=== PATIENT | female | born 1940 | race Caucasian/White ===

== ENCOUNTER 2019-11-21 01:01 | Observation (INO) | payer MEDICARE, OTHER, SELFPAY ==
[2019-11-21] VITALS (16 sets, daily range): BP systolic 100–145; BP diastolic 63–106; PULSE 70–153; RESP 12–28; TEMP 36.3–36.9; O2SAT 93–100; BMI 16.5
--- NOTE | 2019-11-21 01:05 | XRR_ITS ---
PROCEDURE INFORMATION: Exam: XR Chest, 1 View Exam date and time: 11/21/2019 1:44 AM Age: 79 years old Clinical indication: Other: Syncope TECHNIQUE: Imaging protocol: XR of the chest Views: 1 view. COMPARISON: No relevant prior studies available. FINDINGS: Lungs: A calcified granuloma seen in the right perihilar region. Pleural space: Unremarkable. No pleural effusion. No pneumothorax. Heart/Mediastinum: Unremarkable. No cardiomegaly. Bones/joints: Unremarkable. XR/XR chest 1V portable [id number] IMPRESSION: There are no acute chest findings.
--- NOTE | 2019-11-21 01:06 | ECG_ITS ---
Measurements Intervals [place] Rate: 145 P: MI: 0 QRS: -26 QRSD: 126 T: 128 QT: 320 QTc: 498 ATRIAL FIBRILLATION WITH RAPID VENTRICULAR RESPONSE LEFT BUNDLE BRANCH BLOCK No previous ECG available for comparison Electronically Signed On 11-21-2019 16:18:57 CDT by Elvia Snyder M.D. [id number]
[2019-11-21 01:18] LABS: Basophils % 0.2 %; Eosinophils # 0.1 10^3/uL (0.0-0.8); Eosinophils % 0.5 %; Hematocrit 38.2 % (37.0-47.0); Hemoglobin 12.5 g/dL (11.5-15.3); Lymphocytes # 2.2 10^3/uL (0.8-4.8); Mean Corpuscular HGB Conc 32.7 g/dL (30.0-36.0); Mean Corpuscular Hemoglobin 29.6 pg (28.0-34.0); Mean Corpuscular Volume 90.5 fL (81-99); Mean Platelet Volume 10.7 fL (7.4-10.4); Monocytes # 0.6 10^3/uL (0.2-0.9); Monocytes % 4.5 %; Neutrophils % 77.5 %; Nucleated Red Blood Cells % 0 %; Platelet Count 256 10^3/cmm (130-400); Red Blood Count 4.22 10^6/uL (4.1-5.3); Red Cell Distribution Width 12.2 % (12.1-15.1); White Blood Count 12.9 10^3/uL (4.0-10.0)
[2019-11-21 01:28] LABS: Partial Thromboplastin Time 24.8 SECONDS (23.9-36.7)
[2019-11-21 01:35] LABS: Troponin(5th) Baseline 6 ng/mL (0-10)
[2019-11-21 01:44] LABS: Urine Appearance Clear (CLEAR); Urine Color Yellow (Yellow); pH Urine 7 (5-7)
[2019-11-21 01:45] LABS: Bacteria Urine 1+; Bilirubin Urine Neg (NEGATIVE); Blood Urine Neg (Negative); Glucose Urine UA Trace (Normal); Ketones Urine 2+ (Negative); Leukocyte Esterase Urine 1+ (Negative); Nitrate Urine Negative (Negative); Protein Urine Neg (Negative); RBC Urine 0-4 /hpf (0-2); Squamous Epithelial Cell Urine 0-4 (0-5); Urobilinogen Urine Norm (Negative); WBC Urine 0-4 /hpf (0-5)
--- NOTE | 2019-11-21 02:06 | W.ED.GENADLT ---
HPI - General Adult General: Chief complaint: General Medical Stated complaint: chest pain/possible stemi Time Seen by Provider: 11/21/19 01:05 History of Present Illness: HPI narrative: Mrs. Miller is a nice 79-year-old female who comes in complaining of feeling fatigued throughout the day today. She states when she went to lay down she had the abrupt onset of nausea and she threw up. She felt weak all over. She stated that she nearly passed out. She denies any chest pain, shortness of breath, headache, abdominal pain, back pain, blood in her bowels or otherwise. Patient states she is not had anything like this before. EMS was called and in route they called a STEMI alert. Dr. Rojas reviewed the EKG here and felt it to be a left bundle branch block as did I. Currently the patient states she feels tired and fatigued but otherwise she has no complaints. She denies any chronic medical problems and she states she is never had any surgeries. Associated symptoms: Reports nausea and vomiting; Deny chest pain, confusion, diaphoresis, dyspnea, headache(s), malaise, rash, palpitations or syncope Review of Systems Const: Denies: fever(s), chills, body aches, fatigue, malaise, night sweats or diaphoresis Eyes: Denies: change in vision, blurry vision or blind spots ENMT: Denies: throat pain, odynophagia, hoarseness, ear or mastoid pain, ear discharge, change in hearing or nasal discharge Card: Reports: pre-syncope; Denies: chest pain, palpitations, irregular heart rhythm, lightheadedness, syncope, dyspnea on exertion or orthopnea Resp: Denies: dyspnea, productive cough, non-productive cough, wheezing, hemoptysis or chest congestion GI: Reports: nausea and vomiting; Denies: abdominal pain, hematemesis, coffee ground emesis, heartburn, diarrhea, constipation, GI cramping, hematochezia or melena : Denies: flank pain, dysuria, urinary frequency, urinary urgency, oliguria, urinary incontinence or hematuria Musc: Denies: neck pain, back pain, extremity pain, extremity swelling, joint pain, joint swelling, joint redness, joint warmth or joint stiffness Skin/Breast: Denies: rash, pruritus, erythema, skin tenderness or jaundice Neuro: Denies: headache(s), numbness in extremities, weakness in extremities, sensory changes, lack of coordination, difficulty walking, dizziness, vertigo, confusion or Slurred speech present Endo: Denies: polyuria, polydipsia, tired all the time, cold intolerance, excessive sweating, flushing, hot flashes or heat intolerance Steven/Lymph: Denies: easy bruising, easy bleeding, petechiae, purpura or enlarged lymph nodes All/Imm: Denies: urticaria, throat swelling, tongue swelling, facial swelling or acute wheezing PFSH ED PFSH: Medical History No pertinent past medical history Surgical History No history of previous surgery Family History Father Family history of premature coronary artery disease Other CAD (coronary artery disease) Social History Smoking and tobacco status: never smoked Physical Exam Const: COMMON NORMALS: no acute distress, patient oriented x3, no limitations, healthy appearing and well nourished EXAM LIMITATIONS: no altered mental status GENERAL APPEARANCE: cooperative, well kempt and well developed HENMT: COMMON NORMALS: normocephalic, atraumatic, hearing grossly normal bilaterally, external ears normal, EAC's normal, Normal external nose present and moist oral mucous membranes HEAD & SCALP: normal to inspection, normocephalic and atraumatic FACE & SINUS: normal facial exam and face symmetric NOSE: Normal external nose present and Normal nares present EXTERNAL EAR: Yes external ears normal EXTERNAL AUDITORY CANAL: EAC's normal MOUTH: Normal oral and palatal mucosa present, lip normal and tongue normal Eye: COMMON NORMALS: Equal, round and reactive pupils present, EOMs intact bilaterally, conjunctivae normal and no scleral icterus GENERAL EYE: appearance normal, both eyes and all related structures and normal light reflex ALIGNMENT: Yes alignment normal PERIORBITAL: periorbital findings normal EYELID: eyelids normal CONJUNCTIVA: Yes conjunctivae normal SCLERA: sclerae normal PUPIL: Yes Equal, round and reactive pupils present DIRECT OPHTHALMOSCOPY: Yes normal light reflex Neck/C-Spine: COMMON NORMALS: full ROM, no lymphadenopathy, supple, no meningeal signs and no JVD GENERAL: Yes normal visual inspection and Yes trachea midline CERVICAL SPINE: Yes cervical ROM normal Chest: COMMONS NORMALS: normal inspection of the chest and normal palpation of entire chest wall Resp: COMMON NORMALS: normal respiratory effort, No retractions, No use of accessory muscles and clear to auscultation bilaterally EFFORT & INSPECTION: Yes able to speak in complete sentences AUSCULTATION: clear to auscultation bilaterally, no crackles, no rales, no rhonchi and no wheezes Cardio: COMMON NORMALS: no JVD, regular rate, regular rhythm, S1 normal heart sound present, S2 normal heart sound present, No gallops present (Cardio), No clicks present (Cardio), No murmurs present (Cardio) and No rub (Cardio) RATE: regular rate RHYTHM: regular rhythm HEART SOUNDS: S1 normal heart sound present, S2 normal heart sound present, no click, no gallops, no murmurs and no rubs GI: COMMON NORMALS: Soft to palpation, non-tender, No hepatosplenomegaly present and no masses PALPATION: Yes Soft to palpation, No Tenderness to palpation present (GI), No Guarding due to palpation present (GI), No Rigid due to palpation, Yes No hepatosplenomegaly present, No Hernia present, No Palpable mass present and No Pulsatile mass present : COMMON NORMALS: Yes no CVA tenderness BLADDER/KIDNEY EXAM: Yes no CVA tenderness EXTERNAL FEMALE EXAM: No Hernia present Back/Pelvis: COMMON NORMALS: no CVA tenderness, thoracic and lumbar spine normal to inspection, no thoracic nor lumbar tenderness and thoraco-lumbar ROM normal Extremity: COMMON NORMALS: normal to inspection, full ROM, capillary refill normal, no joint enlargement, no clubbing, cyanosis or edema and no calf tenderness Neuro: COMMON NORMALS: patient oriented x3, CN's II-XII intact bilaterally, moves all extremities, no focal motor deficits and no sensory deficits noted MENINGEAL SIGNS: Yes no meningeal signs SPEECH: speech normal Psych: COMMON NORMALS: mental status grossly normal, Normal thought process present, cooperative, normal affect, speech normal and activity/motor behavior normal APPEARANCE: Yes well kempt SPEECH: Yes normal speech THOUGHT PROCESS: Normal thought process present Skin: COMMON NORMALS: no rashes or lesions noted, turgor normal, no jaundice, no petechiae and no mottling GENERAL SKIN EXAM: no rashes or lesions noted and turgor normal Course Vital Signs: Vital signs: Vital Signs Temperature 97.4 F L 11/21/19 01:02 Pulse Rate 146 H 11/21/19 02:00 Respiratory Rate 13 11/21/19 02:00 Blood Pressure 126/85 11/21/19 02:00 Pulse Oximetry 96 11/21/19 02:00 MDM - General Adult MDM Narrative: Medical decision making narrative: The case was reviewed with Dr. Jones, he agrees to go ahead and admit. The patient is a new onset atrial fibrillation with a near syncopal episode. Lab Data: Labs: Lab Results 11/21/19 11/21/19 11/21/19 Range/Units 01:10 01:10 01:10 WBC 12.9 H (4.0-10.0) 10^3/ uL RBC 4.22 (4.1-5.3) 10^6/u L Hgb 12.5 (11.5-15.3) g/dL Hct 38.2 (37.0-47.0) % MCV 90.5 (81-99) fL MCH 29.6 (28.0-34.0) pg MCHC 32.7 (30.0-36.0) g/dL RDW 12.2 (12.1-15.1) % Plt Count 256 (130-400) 10^3/c mm MPV 10.7 H (7.4-10.4) fL Neut % (Auto) 77.5 % Lymph % (Auto) 17.0 % [place] % (Auto) 4.5 % Eos % (Auto) 0.5 % Baso % (Auto) 0.2 % Neut # (Auto) 10.0 H (1.8-7.7) 10^3/u L Lymph # (Auto) 2.2 (0.8-4.8) 10^3/u L [place] # (Auto) 0.6 (0.2-0.9) 10^3/u L Eos # (Auto) 0.1 (0.0-0.8) 10^3/u L Baso # (Auto) 0.0 (0.0-0.1) 10^3/u L Nucleated RBC % (a uto) 0 % Nucleated RBCs # 0.0 /100WBC PT 13.50 H (10.5-13.3) SECO NDS INR 1.00 (0.8-1.2) APTT 24.8 (23.9-36.7) SECO NDS Sodium 137 (136-145) mmol/L Potassium 3.2 L (3.5-5.1) mmol/L Chloride 100 (98-107) mmol/L Carbon Dioxide 23 (22-29) mmol/L Anion Gap 17.2 (5-19) BUN 10 (8-23) mg/dL Creatinine 0.5 (0.5-0.9) mg/dL Glucose 149 H (65-115) mg/dL Calculated Osmolal ity 283 L (285-295) mOsm/k g Calcium 8.8 (8.5-10.5) mg/dL Magnesium 1.9 (1.7-2.3) mg/dL Total Bilirubin 0.4 (0.15-1.2) mg/dL AST 19 (0-32) U/L ALT 17 (0-33) U/L Alkaline Phosphata se 73 (35-105) IU/L Creatine Kinase 52 (26-192) U/L Troponin T Baselin e (0-10) ng/mL NT-Pro-B Natriuret Pep 51 (0-450) pg/mL Total Protein 7.2 (6.6-8.7) g/dL Albumin 4.3 (3.5-5.2) g/dL Globulin 2.9 (1.3-4.6) g/dL TSH 5.38 H (0.27-4.20) uIU/ mL Urine Color (Yellow) Urine Appearance (CLEAR) Urine pH (5-7) Ur Specific Gravit y (1.005-1.030) Urine Protein (Negative) Urine Glucose (UA) (Normal) Urine Ketones (Negative) Urine Blood (Negative) Urine Nitrate (Negative) Urine Bilirubin (NEGATIVE) Urine Urobilinogen (Negative) mg/dL Ur Leukocyte Ayanna ase (Negative) Urine RBC (0-2) /hpf Urine WBC (0-5) /hpf Ur Squamous Epith Cells (0-5) Urine Bacteria (NONE) Ethyl Alcohol < 10 (0-10) mg/dL 11/21/19 11/21/19 Range/Units 01:10 01:22 WBC (4.0-10.0) 10^3/ uL RBC (4.1-5.3) 10^6/u L Hgb (11.5-15.3) g/dL Hct (37.0-47.0) % MCV (81-99) fL MCH (28.0-34.0) pg MCHC (30.0-36.0) g/dL RDW (12.1-15.1) % Plt Count (130-400) 10^3/c mm MPV (7.4-10.4) fL Neut % (Auto) % Lymph % (Auto) % [place] % (Auto) % Eos % (Auto) % Baso % (Auto) % Neut # (Auto) (1.8-7.7) 10^3/u L Lymph # (Auto) (0.8-4.8) 10^3/u L [place] # (Auto) (0.2-0.9) 10^3/u L Eos # (Auto) (0.0-0.8) 10^3/u L Baso # (Auto) (0.0-0.1) 10^3/u L Nucleated RBC % (a uto) % Nucleated RBCs # /100WBC PT (10.5-13.3) SECO NDS INR (0.8-1.2) APTT (23.9-36.7) SECO NDS Sodium (136-145) mmol/L Potassium (3.5-5.1) mmol/L Chloride (98-107) mmol/L Carbon Dioxide (22-29) mmol/L Anion Gap (5-19) BUN (8-23) mg/dL Creatinine (0.5-0.9) mg/dL Glucose (65-115) mg/dL Calculated Osmolal ity (285-295) mOsm/k g Calcium (8.5-10.5) mg/dL Magnesium (1.7-2.3) mg/dL Total Bilirubin (0.15-1.2) mg/dL AST (0-32) U/L ALT (0-33) U/L Alkaline Phosphata se (35-105) IU/L Creatine Kinase (26-192) U/L Troponin T Baselin e 6 (0-10) ng/mL NT-Pro-B Natriuret Pep (0-450) pg/mL Total Protein (6.6-8.7) g/dL Albumin (3.5-5.2) g/dL Globulin (1.3-4.6) g/dL TSH (0.27-4.20) uIU/ mL Urine Color Yellow (Yellow) Urine Appearance Clear (CLEAR) Urine pH 7 (5-7) Ur Specific Gravit y 1.010 (1.005-1.030) Urine Protein Neg (Negative) Urine Glucose (UA) Trace H (Normal) Urine Ketones 2+ H (Negative) Urine Blood Neg (Negative) Urine Nitrate Negative (Negative) Urine Bilirubin Neg (NEGATIVE) Urine Urobilinogen Norm (Negative) mg/dL Ur Leukocyte Ayanna ase 1+ H (Negative) Urine RBC 0-4 H (0-2) /hpf Urine WBC 0-4 H (0-5) /hpf Ur Squamous Epith Cells 0-4 H (0-5) Urine Bacteria 1+ H (NONE) Ethyl Alcohol (0-10) mg/dL Imaging Data^: CXR: My impression: No acute cardiopulmonary findings. EKG Data^: EKG 1: Attestation: I personally reviewed and interpreted this EKG as follows: EKG interpretation date: 11/21/19 EKG interpretation time: 01:09 Interpretation: Atrial fibrillation with rapid ventricular response at 145, left bundle branch block. Left bundle branch block old. Discharge Plan Discharge Patient Disposition: Placed in Observation Clinical Impression: Atrial fibrillation with RVR, Near syncope Condition: Stable Prescriptions: No Action Aricept 10 mg 10 mg PO BEDTIME RF: 0 atorvastatin RF: 0 Referrals: Dave Cooper [Primary Care Provider] - Coding Level of Care Code ED Social Services Analyst for Chg Fwd Exam Comprehensive
[2019-11-21 02:13] LABS: Alanine Aminotransferase 17 U/L (0-33); Albumin Level 4.3 g/dL (3.5-5.2); Alcohol Level < 10 mg/dL (0-10); Alkaline Phosphatase 73 IU/L (35-105); Anion Gap 17.2 (5-19); Aspartate Amino Transferase 19 U/L (0-32); Blood Urea Nitrogen 10 mg/dL (8-23); Calcium 8.8 mg/dL (8.5-10.5); Carbon Dioxide 23 mmol/L (22-29); Chloride 100 mmol/L (98-107); Creatine Phosphokinase 52 U/L (26-192); Globulin 2.9 g/dL (1.3-4.6); Glucose 149 mg/dL (65-115); Magnesium 1.9 mg/dL (1.7-2.3); NT Pro B Type Natriuretic Pept 51 pg/mL (0-450); Osmolality Calculated 283 mOsm/kg (285-295); Potassium 3.2 mmol/L (3.5-5.1); Sodium 137 mmol/L (136-145); Thyroid Stimulating Hormone 5.38 uIU/mL (0.27-4.20); Total Bilirubin 0.4 mg/dL (0.15-1.2); Total Protein 7.2 g/dL (6.6-8.7)
[2019-11-21] MEDS: potassium chloride oral liq 20 mEq/15 mL UDC 40 MEQ PO (02:58)
--- NOTE | 2019-11-21 03:06 | ECG_ITS ---
Measurements Intervals [place] Rate: 84 P: 69 MA: 155 QRS: -7 QRSD: 125 T: 64 QT: 440 QTc: 521 SINUS RHYTHM POSSIBLE LEFT ATRIAL ENLARGEMENT [-0.1mV P WAVE IN V1/V2] LEFT BUNDLE BRANCH BLOCK [120+ ms QRS DURATION, 80+ ms Q/S IN V1/V2, 85+ ms R IN I/aVL/V5/V6] No previous ECG available for comparison Electronically Signed On 11-21-2019 16:27:08 CDT by Elvia Snyder M.D. [id number]
--- NOTE | 2019-11-21 03:15 | USCV_ITS ---
Odalys Miller Age: 79 Gender: F : 1940 Exam Date: 11/21/2019 08:38 Ordering Phys: Lamine Palma MD Technologist: Melissa Bowers Exam Location: [facility] [place] Indication: Afib/RVR BP: 112 / 63 HR: 77 Rhythm: Sinus Technical Quality: Suboptimal MEASUREMENTS (Male / Female) Normal Values 2D ECHO LV Diastolic Diameter PLAX 3.1 cm 4.2 - 5.9 / 3.9 - 5.3 cm LV Systolic Diameter PLAX 1.6 cm LV Chamber Size 2.3 cm IVS Diastolic Thickness 1.3 cm 0.6 - 1.0 / 0.6 - 0.9 cm IVS Systolic Thickness 1.8 cm LVPW Diastolic Thickness 1.0 cm 0.6 - 1.0 / 0.6 - 0.9 cm LVPW Systolic Thickness 1.0 cm RV Chamber Size 2.0 cm LVOT Diameter 1.8 cm LV Ejection Fraction 2D Teich 80.6 % LV Ejection Fraction MOD 2C 65.4 % LV Ejection Fraction 2C AL 69.1 % LA Diameter 1.7 cm LA Width 2.5 cm LA Height 4.1 cm RA Width 2.7 cm RA Height 3.6 cm Aorta at Sinotubular Diameter 2.2 cm M-MODE LV Diastolic Diameter MM 4.8 cm 4.2 - 5.9 / 3.9 - 5.3 cm LV Systolic Diameter MM 3.0 cm LV Ejection Fraction MM Teich 65.6 % IVS Diastolic Thickness MM 1.0 cm 0.6 - 1.0 / 0.6 - 0.9 cm IVS Systolic Thickness MM 1.6 cm LVPW Diastolic Thickness MM 1.0 cm 0.6 - 1.0 / 0.6 - 0.9 cm LVPW Systolic Thickness MM 1.5 cm Aortic Annulus Diameter 2.9 cm LA Ao Ratio MM 0.6 MV E Point Septal Separation 0.6 cm DOPPLER AV Peak Velocity 136.0 cm/s LVOT Peak Velocity 116.0 cm/s AV Area Cont Eq vti 2.2 cm squared AV Area Cont Eq pk 2.2 cm squared MV Area PHT 3.7 cm squared Mitral E to A Ratio 0.8 MV E' Velocity 8.0 cm/s Mitral E to MV E' Ratio 11.1 Mitral E to LV E' Lateral Ratio 9.4 Mitral E to LV E' Septal Ratio 13.6 TR Peak Velocity 254.0 cm/s TR Peak Gradient 25.9 mmHg TR Mean Velocity 212.1 cm/s TR Mean Gradient 18.8 mmHg TR Velocity Time Integral 71.6 cm TV Peak E Velocity 40.0 cm/s Right Atrial Pressure 3.0 mmHg Pulmonary Artery Systolic Pressu 28.8 mmHg PV Peak Velocity 82.0 cm/s RV Acceleration Time 0.1 s RV Ejection Time 0.3 s RV AcT/ET 0.3 FINDINGS Left Ventricle Normal left ventricular size, systolic function and wall thickness, with no regional wall motion abnormalities. Left ventricular ejection fraction is estimated at 70 %. Grade 1 diastolic dysfunction with normal to mildly elevated filling pressure. Right Ventricle Normal right ventricular size and systolic function. Right ventricular systolic pressure 28.8 mmHg. Right Atrium Normal right atrial size. Right atrial pressure estimated at 3 mmHg. Left Atrium Upper normal left atrial size. Mitral Valve Structurally normal mitral valve. No mitral valve stenosis. No mitral valve regurgitation. Aortic Valve Mildly thickened and sclerotic trileaflet aortic valve. Aortic valve sclerosis without stenosis. No aortic valve regurgitation. Tricuspid Valve Structurally normal tricuspid valve. Mild tricuspid valve regurgitation. Pulmonic Valve Pulmonic valve not well visualized. No pulmonary valve stenosis. No pulmonary valve regurgitation. Pericardium No pericardial effusion. Aorta Normal size aortic root and proximal ascending aorta. CONCLUSIONS 1. Normal left ventricular size, systolic function and wall thickness, with no regional wall motion abnormalities. Left ventricular ejection fraction is estimated at 70 %. Grade 1 diastolic dysfunction with normal to mildly elevated filling pressure. 2. Normal right ventricular size and systolic function. 3. Mild tricuspid valve regurgitation. 4. No prior similar studies to compare. Elvia Snyder MD (Electronically Signed) Final Date: 21 Nov 2019 16:17 S
--- NOTE | 2019-11-21 03:22 | PM.HP ---
Providers/Chief Complaint Primary Care Provider: Dave Cooper Chief Complaint: AFIB W/ RVR History of Present Illness Odalys Miller is a 79 year old female with past medical history of dyslipidemia and probably mild dementia who was brought to emergency room due to complaints of chest pain. EKG showed A. fib with RVR with heart rate of close to 150. EKG also showed left bundle branch block for which heart alert was called. 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 Patient also reports associated tiredness and diaphoresis. The symptoms started yesterday afternoon. The patient received full dose of aspirin by EMS. In the emergency room the patient received bolus of diltiazem and was started on diltiazem drip. Currently the heart rate is at 120s. She reports that her chest discomfort has resolved. She denies any shortness of breath or cough. No fevers or chills. No nausea or vomiting. No diarrhea. She denies any dysuria or abdominal pain. The patient denies similar chest discomfort in the past. No tobacco alcohol and substance abuse. Family history is positive for heart attack in her father at very young age. Review of Systems General: Reports: 10 or more systems reviewed and unremarkable except in HPI and below Medications/Allergies Home Medications Medication Instructions Recorded Confirmed Last Taken Type Aricept 10 mg PO BEDTIME 11/21/19 11/21/19 11/20/19 History atorvastatin 11/21/19 11/20/19 History Allergies Allergy/AdvReac Type Severity Reaction Status Date / Time meperidine [From Demerol] Allergy ALGY-Hives Verified 11/21/19 01:12 PFSH Acute PFSH: Medical History No pertinent past medical history Surgical History No history of previous surgery Family History Father Family history of premature coronary artery disease Other CAD (coronary artery disease) Social History Smoking and tobacco status: never smoked Vitals/I&O/Wt Last Vital Signs Temp 97.4 F L 11/21/19 01:02 Pulse 150 H 11/21/19 03:17 Resp 18 11/21/19 03:17 BP 102/68 11/21/19 03:17 Pulse Ox 100 11/21/19 03:17 11/20/19 11/20/19 11/21/19 14:59 22:59 06:59 Intake Total 6.834 / 6.834 Balance 6.834 / 6.834 Weight last 48 hrs Weight 40.823 kg Physical Exam Narrative: EXAM NARRATIVE: Currently the patient is awake alert and oriented. No acute distress. Mood and affect are appropriate. Responses are adequate. Skin is warm and dry. Moist mucous membranes. Eyes Boo, extraocular muscles intact. No facial asymmetry. Normal speech. No focal muscle weaknesses or sensory loss. Heart: S1, S2, irregularly irregular Lungs are clear to auscultation bilaterally. No respiratory distress Abdomen is soft, nontender, bowel sounds are present Extremities no edema cyanosis or calf tenderness bilaterally Data : 11/21/19 01:10 11/21/19 01:10 Other Labs: Laboratory Results WBC 12.9 10^3/uL (4.0-10.0) H 11/21/19 01:10 RBC 4.22 10^6/uL (4.1-5.3) 11/21/19 01:10 Hgb 12.5 g/dL (11.5-15.3) 11/21/19 01:10 Hct 38.2 % (37.0-47.0) 11/21/19 01:10 MCV 90.5 fL (81-99) 11/21/19 01:10 MCH 29.6 pg (28.0-34.0) 11/21/19 01:10 MCHC 32.7 g/dL (30.0-36.0) 11/21/19 01:10 RDW 12.2 % (12.1-15.1) 11/21/19 01:10 Plt Count 256 10^3/cmm (130-400) 11/21/19 01:10 MPV 10.7 fL (7.4-10.4) H 11/21/19 01:10 Neut % (Auto) 77.5 % 11/21/19 01:10 Lymph % (Auto) 17.0 % 11/21/19 01:10 [place] % (Auto) 4.5 % 11/21/19 01:10 Eos % (Auto) 0.5 % 11/21/19 01:10 Baso % (Auto) 0.2 % 11/21/19 01:10 Neut # (Auto) 10.0 10^3/uL (1.8-7.7) H 11/21/19 01:10 Lymph # (Auto) 2.2 10^3/uL (0.8-4.8) 11/21/19 01:10 [place] # (Auto) 0.6 10^3/uL (0.2-0.9) 11/21/19 01:10 Eos # (Auto) 0.1 10^3/uL (0.0-0.8) 11/21/19 01:10 Baso # (Auto) 0.0 10^3/uL (0.0-0.1) 11/21/19 01:10 Nucleated RBC % (auto) 0 % 11/21/19 01:10 Nucleated RBCs # 0.0 /100WBC 11/21/19 01:10 PT 13.50 SECONDS (10.5-13.3) H 11/21/19 01:10 INR 1.00 (0.8-1.2) 11/21/19 01:10 APTT 24.8 SECONDS (23.9-36.7) 11/21/19 01:10 Sodium 137 mmol/L (136-145) 11/21/19 01:10 Potassium 3.2 mmol/L (3.5-5.1) L 11/21/19 01:10 Chloride 100 mmol/L (98-107) 11/21/19 01:10 Carbon Dioxide 23 mmol/L (22-29) 11/21/19 01:10 Anion Gap 17.2 (5-19) 11/21/19 01:10 BUN 10 mg/dL (8-23) 11/21/19 01:10 Creatinine 0.5 mg/dL (0.5-0.9) 11/21/19 01:10 Glucose 149 mg/dL (65-115) H 11/21/19 01:10 Calculated Osmolality 283 mOsm/kg (285-295) L 11/21/19 01:10 Calcium 8.8 mg/dL (8.5-10.5) 11/21/19 01:10 Magnesium 1.9 mg/dL (1.7-2.3) 11/21/19 01:10 Total Bilirubin 0.4 mg/dL (0.15-1.2) 11/21/19 01:10 AST 19 U/L (0-32) 11/21/19 01:10 ALT 17 U/L (0-33) 11/21/19 01:10 Alkaline Phosphatase 73 IU/L (35-105) 11/21/19 01:10 Creatine Kinase 52 U/L (26-192) 11/21/19 01:10 Troponin T Baseline 6 ng/mL (0-10) 11/21/19 01:10 NT-Pro-B Natriuret Pep 51 pg/mL (0-450) 11/21/19 01:10 Total Protein 7.2 g/dL (6.6-8.7) 11/21/19 01:10 Albumin 4.3 g/dL (3.5-5.2) 11/21/19 01:10 Globulin 2.9 g/dL (1.3-4.6) 11/21/19 01:10 TSH 5.38 uIU/mL (0.27-4.20) H 11/21/19 01:10 Urine Color Yellow (Yellow) 11/21/19 01:22 Urine Appearance Clear (CLEAR) 11/21/19 01:22 Urine pH 7 (5-7) 11/21/19 01:22 Ur Specific [place] 1.010 (1.005-1.030) 11/21/19 01:22 Urine Protein Neg (Negative) 11/21/19 01:22 Urine Glucose (UA) Trace (Normal) H 11/21/19 01:22 Urine Ketones 2+ (Negative) H 11/21/19 01:22 Urine Blood Neg (Negative) 11/21/19 01:22 Urine Nitrate Negative (Negative) 11/21/19 01:22 Urine Bilirubin Neg (NEGATIVE) 11/21/19 01:22 Urine Urobilinogen Norm mg/dL (Negative) 11/21/19 01:22 Ur Leukocyte Esterase 1+ (Negative) H 11/21/19 01:22 Urine RBC 0-4 /hpf (0-2) H 11/21/19 01:22 Urine WBC 0-4 /hpf (0-5) H 11/21/19 01:22 Ur Squamous Epith Cells 0-4 (0-5) H 11/21/19 01:22 Urine Bacteria 1+ (NONE) H 11/21/19 01:22 Ethyl Alcohol < 10 mg/dL (0-10) 11/21/19 01:10 A&P Additional A&P Information 79-year-old female presenting with chest discomfort and tiredness. She is found to have A. fib with RVR. A. fib with RVR. Will go to cardiac stepdown unit. We will continue diltiazem drip. Will order echo. Chads 2 score is 1 for her age. However depending on further findings and vital signs the score might go up and we might need to consider anticoagulation instead of aspirin. Chest pain. Probably secondary to A. fib. We will continue monitoring troponin level. I will prescribe baby aspirin a day and Lipitor. We will check her fasting lipids in the morning. Hypokalemia. Replaced. Continue monitoring and replacing Abnormal TSH. Will order free T4 level. DVT prophylaxis. Lovenox. CODE STATUS. The patient wants to be full code. The plan of care was discussed with the patient. She verbalized understanding and agreement. Attestations Medical Necessity Statement*: Observation Coding Level of Care Code Acute Contact Center Representative for Gilmer Weiner
--- NOTE | 2019-11-21 03:57 | PC.NURSE ---
Patient arrived to room via stretcher. Patient Caridzem drip was on 5mls per hour with a heart rate of 82 bpm. Side rails up x2, bed in low position, call light within reach. Patient oriented to room and will continue to monitor.
[2019-11-21] MEDS: enoxaparin 40 mg/0.4 mL Syringe SUBCUT (04:10)
[2019-11-21] MEDS: sodium chloride 0.9% 1,000 ML 100 ML IV (04:13)
[2019-11-21 05:15] LABS: Anion Gap 16.5 (5-19); Basophils % 0.1 %; Blood Urea Nitrogen 10 mg/dL (8-23); Calcium 9.5 mg/dL (8.5-10.5); Carbon Dioxide 23 mmol/L (22-29); Chloride 103 mmol/L (98-107); Glucose 182 mg/dL (65-115); Hematocrit 40.2 % (37.0-47.0); Hemoglobin 12.8 g/dL (11.5-15.3); Lymphocytes % 14.1 %; Mean Corpuscular HGB Conc 31.8 g/dL (30.0-36.0); Mean Corpuscular Hemoglobin 29.4 pg (28.0-34.0); Mean Corpuscular Volume 92.4 fL (81-99); Mean Platelet Volume 10.4 fL (7.4-10.4); Monocytes # 0.2 10^3/uL (0.2-0.9); Neutrophils # 5.7 10^3/uL (1.8-7.7); Neutrophils % 82.7 %; Nucleated Red Blood Cells % 0 %; Osmolality Calculated 287 mOsm/kg (285-295); Platelet Count 266 10^3/cmm (130-400); Potassium 4.5 mmol/L (3.5-5.1); Red Blood Count 4.35 10^6/uL (4.1-5.3); Sodium 138 mmol/L (136-145); White Blood Count 6.9 10^3/uL (4.0-10.0)
--- NOTE | 2019-11-21 06:19 | PC.NURSE ---
Patient Cardizem drip paused. Patients heart rate is 65 to 70 in normal sinus rhythm. Will continue monitor.
[2019-11-21 07:55] LABS: Troponin 5 2HR 10.27 ng/mL (0-10); Troponin 5 2HR Delta 4.27 ABS# (0-10)
[2019-11-21 07:55] LABS: Troponin 5 6HR 11.57 ng/mL (0-10); Troponin 5 6HR Delta 5.57 ng/L (0-12)
--- NOTE | 2019-11-21 09:00 | PC.NURSE ---
Patient's pharmacy closed, unable to obtain med rec at this time.
[2019-11-21] MEDS: aspirin 81 mg EC Tablet PO (09:21)
[2019-11-21 11:36] LABS: Free T4 Free Thyroxine 1.13 ng/dL (0.82-1.77)
--- NOTE | 2019-11-21 14:00 | PC.NURSE ---
Patient's son, John, provided home med rec via telephone. Med rec updated in chart.
[2019-11-21 18:50] LABS: Lipase 77 U/L (13-60)
--- NOTE | 2019-11-21 19:14 | PC.NURSE ---
Patient moved to room 112-2 to be closer to the nurses station. patient oriented to the room and call light within reach. Bed in low position, and side rails up x2. Will continue to monitor.
[2019-11-21] MEDS: donepezil 5 MG Tablet 10 MG PO (20:37)
[2019-11-21] MEDS: atorvastatin 40 mg Tablet 20 MG PO (20:38)
[2019-11-21] MEDS: metoprolol tartrate 25 mg Tablet 12.5 MG PO (20:39)
--- NOTE | 2019-11-21 22:30 | PM.PN ---
Subjective Subjective: Interval history: Patient seen this evening. She is feeling better. Has not had any more sensation of palpitations. Denies any chest pain. Echocardiogram was unremarkable. Laboratory studies today were also unremarkable. I do see elevation in blood sugars without a known history of diabetes. Could be from medications. She has been off Cardizem drip since this morning. I went on and put her on some beta-blockade. Will recheck blood sugar. Plan to monitor on telemetry to see if she has any recurrent arrhythmias. In sinus rhythm presently. Likely discharge home tomorrow with outpatient follow-up and less clear indication for continued inpatient work-up is identified.. Patient was agreeable to this plan. Vitals/I&O/Wt Last Vital Signs Temp 98.4 F 11/21/19 19:51 Pulse 76 11/21/19 19:51 Resp 20 H 11/21/19 19:51 BP 140/79 11/21/19 19:51 Pulse Ox 97 11/21/19 19:51 11/21/19 11/21/19 11/21/19 06:59 14:59 22:59 Intake Total 33.084 / 33.084 843.333 / 843.333 956.667 / 1800.000 Balance 33.084 / 33.084 843.333 / 843.333 956.667 / 1800.000 Weight last 48 hrs Weight 40.823 kg Data : 11/21/19 04:09 11/21/19 04:09 Attestations Medical Necessity Statement*: Requires ongoing care until disposition is planned Coding Level of Care Code Acute Front End Technician for Gilmer Weiner
[2019-11-22] VITALS: BP 135/76; PULSE 78; RESP 20; TEMP 37.1; O2SAT 97
[2019-11-22] MEDS: enoxaparin 40 mg/0.4 mL Syringe SUBCUT (03:31)
[2019-11-22 04:00] VITALS: BP 160/86; PULSE 70; RESP 18; TEMP 36.7; O2SAT 97
[2019-11-22 04:59] LABS: Basophils % 0.2 %; Eosinophils # 0.1 10^3/uL (0.0-0.8); Eosinophils % 1.2 %; Hemoglobin 12.6 g/dL (11.5-15.3); Lymphocytes # 1.9 10^3/uL (0.8-4.8); Lymphocytes % 35.8 %; Mean Corpuscular HGB Conc 32.3 g/dL (30.0-36.0); Mean Corpuscular Hemoglobin 29.8 pg (28.0-34.0); Mean Corpuscular Volume 92.2 fL (81-99); Mean Platelet Volume 10.1 fL (7.4-10.4); Monocytes # 0.4 10^3/uL (0.2-0.9); Monocytes % 8.1 %; Neutrophils # 2.8 10^3/uL (1.8-7.7); Neutrophils % 54.5 %; Nucleated Red Blood Cells % 0 %; Platelet Count 241 10^3/cmm (130-400); Red Blood Count 4.23 10^6/uL (4.1-5.3); Red Cell Distribution Width 12.2 % (12.1-15.1); White Blood Count 5.2 10^3/uL (4.0-10.0)
[2019-11-22 05:27] LABS: Chol HDL Ratio 3.08 mg/dL (0.0-4.40); Cholesterol 157 mg/dL (0-200); HDL Cholesterol 51 mg/dL (60-100); LDL Cholesterol Calculated 89 mg/dL (50-129); LDL HDL Ratio 1.75 RATIO (0.00-3.22); Triglycerides 87 mg/dL (0-150)
[2019-11-22 05:28] LABS: Anion Gap 13.2 (5-19); Blood Urea Nitrogen 10 mg/dL (8-23); Calcium 9.5 mg/dL (8.5-10.5); Carbon Dioxide 25 mmol/L (22-29); Chloride 108 mmol/L (98-107); Glucose 100 mg/dL (65-115); Osmolality Calculated 290 mOsm/kg (285-295); Potassium 4.2 mmol/L (3.5-5.1); Sodium 142 mmol/L (136-145)
[2019-11-22 05:33] LABS: Estmated Average Glucose 137; Hemoglobin A1C 6.4 % (4.0-6.0)
[2019-11-22 08:00] VITALS: BP 123/73; PULSE 71; RESP 14; TEMP 36.8; O2SAT 98
[2019-11-22] MEDS: aspirin 81 mg EC Tablet PO (10:03)
[2019-11-22] MEDS: metoprolol tartrate 25 mg Tablet 12.5 MG PO (10:04)
[2019-11-22 12:00] VITALS: BP 129/74; PULSE 79; RESP 16; TEMP 36.7; O2SAT 96
--- NOTE | 2019-11-22 14:25 | P.DS_ITS ---
Discharge Providers Date of Admission: 11/21/19 02:42 Date of Discharge: November 22, 2019 Attending Provider at Admission: Lamine Palma Attending Provider at Discharge: Allyson Blackwell MD Primary Care Provider: Dave Cooper Diagnoses at Discharge Discharge Diagnosis (1) Atrial fibrillation with RVR: Status: Resolved (2) Paroxysmal atrial fibrillation: Status: Acute Problem details: First diagnosed in November 2019 (3) Near syncope: Status: Resolved (4) Left bundle branch block: Status: Chronic Problem details: Present as early as April 2018 (5) Dyslipidemia: Status: Chronic Problem details: low HDL (6) Dementia: Status: Chronic Problem details: Type unknown (7) Pancreatic insufficiency: Status: Chronic Problem details: Details unknown, on Creon (8) Elevated hemoglobin A1c: Status: Acute Problem details: 6.09 Nov 2019, recommended diet changes and follow-up with PCP, no medication Reason for Visit Reason for Visit: Reason For Visit: AFIB W/ RVR Hospital Course Hospital Course: Patient presented with chest pain and palpitations. She was found to be in atrial fibrillation with rapid ventricular response. Patient was noted to have a left bundle branch block. This was not new as had been seen during the stress test from 2018. Heart rate was as high as 150s. Patient was treated with a Cardizem drip. This was able to be stopped not too long after arrival to the floor after she converted to sinus rhythm. She was put on a low dose of beta-blockade. Rates remain controlled the remainder of the hospital stay and were averaging generally in the 70s. Blood pressures tolerated initiation of metoprolol. Started patient on an aspirin. This is the first known episode of A. fib that I have found. Should she have recurrent atrial fibrillation will need to consider anticoagulation. Echocardiogram was unrevealing. Serial cardiac enzymes were unremarkable. Patient did have some slight hypokalemia and received replacement. She was monitored on telemetry overnight with no further recurrent abnormal heart rhythms. She is stable for discharge home with follow-up to her primary care provider. Consideration can be given to follow-up with cardiology as needed. Patient son or grandson John Miller who can be reached at [phone] indicated that patient has been stressed lately about some things and that her dementia was getting a little bit worse. He describes her being very anxious at times. I reviewed with him findings and plans noted above. Cannot rule out that some of her anxiety might be due to an abnormal heart rhythm but it sounds like there is some specific social or financial situations rather in what he describes as upsetting her. Just something to keep in mind down the road. Patient was noted to have a borderline hemoglobin A1c. Initiated consistent carbohydrate diet at discharge although I am not exactly sure how well she will follow-up. Needs to be monitored for need to initiate treatment. On the day of discharge patient was walking around without any near-syncope symptoms and felt stable for discharge. Physical Exam Narrative: EXAM NARRATIVE: Patient is awake, walking without any evidence of dizziness. Speech is clear. She is a bit confused and has to think really hard about whether or not she knows me. Lungs are clear, she has a regular rhythm without any murmurs noted. No edema. Seems to have tolerated metoprolol overnight well. Discharge Data Data Completed and Pending: Completed Studies During Hospitalization Category Date Time Status XR chest 1V kelly ble [id number] Stat Exams 11/21/19 01:05 Completed CV echo complete* [id number] Urgent Ultrasound 11/21/19 03:15 Completed Labs from last 24 hours 11/22/19 11/22/19 11/22/19 04:38 04:38 04:38 WBC 5.2 RBC 4.23 Hgb 12.6 Hct 39.0 MCV 92.2 MCH 29.8 MCHC 32.3 RDW 12.2 Plt Count 241 MPV 10.1 Neut % (Auto) 54.5 Lymph % (Auto) 35.8 [place] % (Auto) 8.1 Eos % (Auto) 1.2 Baso % (Auto) 0.2 Neut # (Auto) 2.8 Lymph # (Auto) 1.9 [place] # (Auto) 0.4 Eos # (Auto) 0.1 Baso # (Auto) 0.0 Nucleated RBC % (a uto) 0 Nucleated RBCs # 0.0 Sodium Potassium Chloride Carbon Dioxide Anion Gap BUN Creatinine Glucose Estimat Average Gl ucose 137 Hemoglobin A1c 6.4 H Calculated Osmolal ity Calcium Magnesium Triglycerides 87 Cholesterol 157 LDL Cholesterol, C alc 89 HDL Cholesterol 51 L LDL/HDL Ratio 1.75 Cholesterol/HDL Ra stef 3.08 Lipase 11/22/19 11/21/19 04:38 18:00 WBC RBC Hgb Hct MCV MCH MCHC RDW Plt Count MPV Neut % (Auto) Lymph % (Auto) [place] % (Auto) Eos % (Auto) Baso % (Auto) Neut # (Auto) Lymph # (Auto) [place] # (Auto) Eos # (Auto) Baso # (Auto) Nucleated RBC % (a uto) Nucleated RBCs # Sodium 142 Potassium 4.2 Chloride 108 H Carbon Dioxide 25 Anion Gap 13.2 BUN 10 Creatinine 0.5 Glucose 100 Estimat Average Gl ucose Hemoglobin A1c Calculated Osmolal ity 290 Calcium 9.5 Magnesium 2.0 Triglycerides Cholesterol LDL Cholesterol, C alc HDL Cholesterol LDL/HDL Ratio Cholesterol/HDL Ra stef Lipase 77 H Vitals: Last Vital Signs Temp 98.1 F 11/22/19 12:00 Pulse 79 11/22/19 12:00 Resp 16 11/22/19 12:00 BP 129/74 11/22/19 12:00 Pulse Ox 96 11/22/19 12:00 Discharge Plan Discharge Patient Disposition: Home, Self-Care Condition: Stable Prescriptions: New aspirin 81 mg Tablet,Delayed Release (Dr/Ec) 81 mg PO DAILY Qty: 30 RF: 0 metoprolol tartrate 25 mg Tablet 12.5 mg PO Qty: 30 RF: 0 Continued Aricept 10 mg 10 mg PO BEDTIME RF: 0 atorvastatin 20 mg tablet 20 mg PO DAILY RF: 0 Creon 6,000-19,000 -30,000 unit capsule,delayed release(DR/EC) 1 cap PO QID RF: 0 Discharge Orders: Discharge Order (Routine); Ordered 11/22/19 Ordered By: Allyson Blackwell Referrals: Dave Cooper [Primary Care Provider] - 4-7 days (Tomorrow (Saturday), please call Dave Cooper's office to schedule a post hospital follow up to be seen in 4 to 7 days. Thank you) Discharge Diet: Cardiac and Diabetic Discharge Activity: Resume usual activity Patient Instructions: Metoprolol (By mouth), Aspirin (By mouth), Atrial Tachycardia (DC) Activity Restrictions/Additional Instructions: Information below outlines reason for admission and hospital course including some laboratory findings. Some of this is intentionally more medical language to help your primary care provider take the best possible care of you upon follow-up. Please take this paper with you when you see your doctor. You presented to the emergency room with some chest pain and tachycardia. EKG demonstrated evidence of a left bundle branch block which was not new. We do have records from a prior note that showed a left bundle branch block. You were found, however, to be in atrial fibrillation with rapid ventricular response. Cardizem drip was initiated. Potassium was slightly low at 3.2. Serial cardiac enzymes were checked and did not show significant elevation in delta values. BNP was normal. Echocardiogram revealed normal left ventricular size, systolic function and wall motion. Ejection fraction was estimated at 70% with grade 1 diastolic dysfunction. Normal right ventricular size and function was noted. X-ray was unrevealing. TSH was slightly elevated at 5.38 however free T4 was 1.13. Recommend her thyroid functions be rechecked in a few weeks. You had a slightly elevated lipase at 77 (upper limits of normal is 60). Home medications indicate you take a medicine for your pancreas at home. Recommend follow-up with your PCP regarding this. Blood sugars ranged from 100-182. Hemoglobin A1c was checked and was 6.4. This is just above the normal range. At this point in time recommend following a consistent carbohydrate diet as able and following closely with PCP rather than considering any medication management. Will need to monitor for progressively elevated blood sugars and other markers for need to treat. Cholesterol panel was checked and showed triglycerides of 87, cholesterol 157, LDL of 89, HDL at 51 which is low. You are on a medication for your cholesterol at home. You were a little dehydrated when you came in. You received IV fluids. Vital signs were stable throughout the hospital stay after arrival to the floor. You converted to sinus rhythm. You have been started on a low-dose of metoprolol. I have initiated aspirin therapy at this time to help keep you from forming blood clots related to the abnormal heart rhythm. Should you continue to have episodes of atrial fibrillation, anticoagulation will need to be readdressed. Can consider outpatient follow-up with cardiology as needed. Your CBC and electrolytes as well as liver function studies were normal at the time of discharge with creatinine of 0.5, hemoglobin of 12.6, normal platelet count and normal PT and PTT. CK was normal at 52. Potassium was 4.2 and magnesium was 2.0 on the day of discharge. Discharge Attestations Time Spent in Discharge Care*: greater than 30 min Specific Discharge Activities: Specific discharge activities: educating patient, educating and/or supporting family/caregiver, discussing with briefcase sewer/social workers/dc planners, documenting/other paperwork and evaluating patient/reviewing data Quality Metrics Clinical Quality Measures During this hospital stay, did patient experience: None Coding Level of Care Code Acute Archival Studies Professor for Chg Fwd Diagnoses Atrial fibrillation with RVR I48.91 Paroxysmal atrial fibrillation I48.0 Near syncope R55 Left bundle branch block I44.7 Dyslipidemia E78.5 Dementia F03.90 Pancreatic insufficiency K86.89 Elevated hemoglobin A1c R73.09
[2019-11-22 16:00] VITALS: BP 137/85; PULSE 73; RESP 14; TEMP 36.8; O2SAT 98
[2019-11-22 16:57] VITALS: BP 137/85; PULSE 73; RESP 14; TEMP 36.8; O2SAT 98
== END 2019-11-22 16:59 | disposition home or self-care (01) ==
LOC: ER 03:22 → CSU 03:22
PROVIDERS: Emergency Medicine; Admitting Provider Internal Medicine; Family Provider Physician Assistant Medical; PCP Physician Assistant Medical; Visit Provider Hospitalist
DX: I48.0 Paroxysmal atrial fibrillation (principal); E87.6 Hypokalemia; R94.6 Abnormal results of thyroid function studies; E78.5 Hyperlipidemia, unspecified; Z82.49 Family history of ischemic heart disease and other diseases of the circulatory system; R55 Syncope and collapse; I44.7 Left bundle-branch block, unspecified; F03.90 Unspecified dementia, unspecified severity, without behavioral disturbance, psychotic disturbance, mood disturbance, and anxiety; K86.89 Other specified diseases of pancreas; R73.09 Other abnormal glucose
CPT/HCPCS: 12345; 36415; 71045; 80048; 80053; 80061; 80307; 81001; 82550; 83036; 83690; 83735; 83880; 84439; 84443; 84484; 85025; 85610; 85730; 93005; 93306; 96361; 96365; 96366; 96372; 96375; 99283; 99291; G0378; J1650; J3490; J7030

== ENCOUNTER → 2020-09-14 11:16 | Outpatient (BNVA) | payer MEDICARE, OTHER, SELFPAY | PROVIDERS: Family Provider Physician Assistant Medical; PCP Physician Assistant Medical; Visit Provider Nurse Practitioner Family | DX: S99.922A Unspecified injury of left foot, initial encounter (principal); X58.XXXA Exposure to other specified factors, initial encounter | CPT/HCPCS: 73660 ==